=== PATIENT | female | born 1960 | race Caucasian/White ===

== ENCOUNTER → 2016-09-24 | Outpatient (CLI) | payer OTHER ==
[~2016-09-24] MED LIST: COPAXONE 20M20 MG/M1 PO; IMITREX 25MG TA25 MG PO; NAPROSYN500 MG; OCUVITE1 TA1; PRILOTC
== END ==
LOC: MC.RAD 07:00
DX: Z12.31 Encounter for screening mammogram for malignant neoplasm of breast (principal)

== ENCOUNTER → 2018-03-24 | Outpatient (CLI) | payer BC | LOC: MC.RAD 16:35 | DX: Z12.31 Encounter for screening mammogram for malignant neoplasm of breast (principal) ==

== ENCOUNTER → 2018-03-31 | Outpatient (CLI) | payer BC | LOC: MC.RAD 10:52 | DX: N60.01 Solitary cyst of right breast (principal) ==

== ENCOUNTER → 2019-06-09 | Outpatient (CLI) | payer BC | LOC: MC.RAD 05-05 13:30 | DX: Z12.31 Encounter for screening mammogram for malignant neoplasm of breast (principal); N63.20 Unspecified lump in the left breast, unspecified quadrant; N63.10 Unspecified lump in the right breast, unspecified quadrant ==

== ENCOUNTER → 2019-06-13 | Outpatient (CLI) | payer BC | LOC: MC.RAD 11:01 | DX: N63.10 Unspecified lump in the right breast, unspecified quadrant (principal); N63.20 Unspecified lump in the left breast, unspecified quadrant; N60.01 Solitary cyst of right breast; N60.02 Solitary cyst of left breast ==

== ENCOUNTER → 2021-05-22 | Outpatient (CLI) | payer BC | LOC: MC.RAD 16:39 | DX: Z12.31 Encounter for screening mammogram for malignant neoplasm of breast (principal); N64.89 Other specified disorders of breast ==

== ENCOUNTER → 2021-06-03 | Outpatient (CLI) | payer BC | LOC: MC.RAD 13:42 | DX: R92.8 Other abnormal and inconclusive findings on diagnostic imaging of breast (principal); R59.0 Localized enlarged lymph nodes ==

== ENCOUNTER → 2021-06-27 | Outpatient (CLI) | payer BC | LOC: COL.RAD 12:15 | DX: D25.9 Leiomyoma of uterus, unspecified (principal) ==

== ENCOUNTER → 2022-04-29 | Outpatient (CLI) | payer BC | LOC: COL.RAD 10:50 | DX: C91.10 Chronic lymphocytic leukemia of B-cell type not having achieved remission (principal) | CPT/HCPCS: Q9967 ==

== ENCOUNTER → 2023-08-12 | Outpatient (CLI) | payer BC | LOC: MC.RAD 07:00 | DX: Z12.31 Encounter for screening mammogram for malignant neoplasm of breast (principal); N63.20 Unspecified lump in the left breast, unspecified quadrant ==